=== PATIENT | male | born 1980 | race Two or more races ===

== ENCOUNTER 2017-03-31 19:38 | Emergency (ER) | payer OTHER ==
[2017-03-31 20:30] VITALS: BP 121/79
[2017-03-31] MEDS ORDERED: ACETAMINOPHEN 325 MG TABLET PO ONE (20:32)
[2017-03-31] MEDS ORDERED: ACETAMINOPHEN 325 MG TABLET ONE (20:34)
[2017-03-31] MEDS ORDERED: GUAIFENESIN/D-METHORPHAN (200-20 MG) SYRUP 10 ML PO ONE (21:09)
[2017-03-31] MEDS ORDERED: IBUPROFEN 800 MG TABLET PO ONE (21:09)
[2017-03-31 21:45] LABS: A TYPE INFLUENZA AG NEGATIVE (NEGATIVE); B INFLUENZA AG NEGATIVE (NEGATIVE)
[2017-03-31] MEDS ORDERED: AMOXICILLIN TRIHYDRATE 500 MG CAPSULE PO ONE (21:59)
--- NOTE | 2017-03-31 21:59 | ER Document Report ---
ED Flu Like - General Chief Complaint: Flu Symptoms Stated Complaint: FLU SYMPTOMS Time Seen by Provider: 03/31/17 21:09 Mode of Arrival: Ambulatory Information source: Patient Notes: Patient is a 36-year-old male who presents to the ER today for sore throat that began this morning with body aches, fever as high as 103F at home and some nausea. He also states there is a dry cough but no shortness of breath or difficulty breathing. Patient states that the sore throat is the worst symptom. He denies any vomiting or diarrhea. TRAVEL OUTSIDE OF THE [place] IN LAST 30 DAYS: Yes - Related Data Allergies/Adverse Reactions: No Known Allergies Allergy (Unverified 03/31/17 19:47) Past Medical History - General Information source: Patient - Social History Smoking Status: Never Smoker Chew tobacco use (# tins/day): No Frequency of alcohol use: None Drug Abuse: None Family History: Reviewed & Not Pertinent Patient has suicidal ideation: No Patient has homicidal ideation: No Renal/ Medical History: Denies: Hx Peritoneal Dialysis Review of Systems - Review of Systems Constitutional: See HPI EENT: See HPI Cardiovascular: No symptoms reported Respiratory: See HPI Gastrointestinal: No symptoms reported Genitourinary: No symptoms reported Male Genitourinary: No symptoms reported Musculoskeletal: No symptoms reported Skin: No symptoms reported Hematologic/Lymphatic: No symptoms reported Neurological/Psychological: No symptoms reported Physical Exam - Vital signs Vitals: Temp Pulse Resp BP Pulse Ox 102.6 F H 111 H 20 121/79 100 03/31/17 20:27 03/31/17 20:27 03/31/17 20:27 03/31/17 20:27 03/31/17 20:27 - Notes Notes: PHYSICAL EXAMINATION: GENERAL: Mildly ill-appearing, but in no acute distress. HEAD: Atraumatic, normocephalic. EYES: Pupils equal round and reactive to light, extraocular movements intact, sclera anicteric, conjunctiva are normal. ENT: ear canals without erythema or foreign body, TMs pearly gray with good bony landmarks, nares patent, oropharynx erythematous with enlarged tonsils bilaterally without exudates. Moist mucous membranes. NECK: Normal range of motion, supple with bilateral cervical lymphadenopathy LUNGS: CTAB and equal. No wheezes rales or rhonchi. HEART: Regular rate and rhythm without murmurs ABDOMEN: Soft, no tenderness. No guarding, no rebound BACK: no vertebral tenderness, normal ROM GI/: no CVA tenderness EXTREMITIES: Normal range of motion, no pitting edema. No cyanosis. NEUROLOGICAL: Cranial nerves grossly intact. Normal sensory/motor exams. PSYCH: Normal mood, normal affect. SKIN: Warm, Dry, normal turgor, no rashes or lesions noted Course - Re-evaluation Re-evalutation: 03/31/17 21:57 Influenza negative today. Will cover patient for strep throat. Fever did reduce with Tylenol and Motrin. 03/31/17 21:57 - Vital Signs Vital signs: Temp Pulse Resp BP Pulse Ox 99 F 111 H 20 121/79 100 03/31/17 22:00 03/31/17 20:27 03/31/17 20:27 03/31/17 20:27 03/31/17 20:27 Discharge - Discharge Clinical Impression: Sore throat, Body aches Fever Qualifiers: Fever type: unspecified Qualified Code(s): R50.9 - Fever, unspecified Condition: Stable Disposition: HOME, SELF-CARE Additional Instructions: Return immediately for any new or worsening symptoms. Follow up with primary care provider, call tomorrow to make followup appointment. Prescriptions: Hydrocodone Bit/Homatropine [Hycodan Syrup 5-1.5 mg/5 ml Ud Cup] 5 ml PO Q4HP PRN #120 ml PRN Reason: Amoxicillin 500 mg PO BID #20 capsule Ibuprofen [Motrin 800 mg Tablet] 800 mg PO Q8H PRN #30 tab PRN Reason: Forms: Return to Work
== END 2017-03-31 22:13 | disposition home or self-care (01) ==
LOC: ER 19:38
DX: J02.9 Acute pharyngitis, unspecified (principal); M79.1 Myalgia; R50.9 Fever, unspecified
CPT/HCPCS: 99283; 87804; J3490

== ENCOUNTER 2018-09-16 14:30 | Emergency (ER) | payer OTHER ==
[2018-09-16 14:39] VITALS: BP 146/91
[2018-09-16] MEDS ORDERED: DIPH/PERTUSS(ACELL)/TETANUS VAC/PF 0.5 ML SYR (>=10YO) IM ONE (14:47)
--- NOTE | 2018-09-16 14:48 | ER Document Report ---
ED Medical Screen (RME) - General Chief Complaint: Hand Pain Stated Complaint: HAND INJURY Time Seen by Provider: 09/16/18 14:47 TRAVEL OUTSIDE OF THE [place] IN LAST 30 DAYS: No COUNTRY TRAVELED TO/FROM: [facility] Notes: 09/16/18 14:47 Patient is a 38-year-old male no significant past medical history who presents complaining of injury to his second third and fourth fingers after they were closed in an attic door. Patient states he does have cuts to each finger. Unknown last tetanus. He is still able to move his fingers, but does have decreased flexion ability because of the pain/swelling. Denies drug allergies. Denies JUNIOR, fever, neck pain, URI, CP, SOB, Abd pain, dysuria, back pain, or rash. I have treated and performed a rapid initial assessment of this patient. A comprehensive ED assessment and evaluation of the patient, analysis of test results and completion of medical decision making process will be conducted by additional ED providers. PHYSICAL EXAMINATION: GENERAL: Well-appearing, well-nourished and in no acute distress. A&Ox4. Answers questions appropriately. Left hand: + puncture lacs noted to the 2nd-4th digits posteriorly, superficial. + tenderness to these digits as well. N/V intact distal. LROM to flexion. Strength 5+/5. - Related Data Allergies/Adverse Reactions: No Known Allergies Allergy (Verified 09/16/18 14:39) Past Medical History Renal/ Medical History: Denies: Hx Peritoneal Dialysis Physical Exam - Vital signs Vitals: Temp Pulse Resp BP Pulse Ox 98 F 101 H 18 146/91 H 98 09/16/18 14:37 09/16/18 14:37 09/16/18 14:37 09/16/18 14:37 09/16/18 14:37 Course - Vital Signs Vital signs: Temp Pulse Resp BP Pulse Ox 98 F 101 H 18 146/91 H 98 09/16/18 14:37 09/16/18 14:37 09/16/18 14:37 09/16/18 14:37 09/16/18 14:37
--- NOTE | 2018-09-16 15:04 | RADIOLOGY REPORT (SQ) ---
EXAM DESCRIPTION: HAND LEFT 3 VIEWS COMPLETED DATE/TIME: 09/16/2018 2:54 pm REASON FOR STUDY: left hand pain COMPARISON: None. EXAM PARAMETERS: NUMBER OF VIEWS: Three views. TECHNIQUE: AP, lateral and oblique radiographic images acquired of the left hand. LIMITATIONS: None. FINDINGS: MINERALIZATION: Normal. BONES: No acute fracture or dislocation. No worrisome bone lesions. JOINTS: No effusions. SOFT TISSUES: No soft tissue swelling. No foreign body. OTHER: No other significant finding. IMPRESSION: No fracture or dislocation of the left hand. TECHNICAL DOCUMENTATION: JOB ID: [id number] [employer]- All Rights Reserved Reading location - IP/workstation name: [email or web address]
--- NOTE | 2018-09-16 15:37 | ER Document Report ---
HPI - HPI Time Seen by Provider: 09/16/18 14:47 Pain Level: 4 Context: Patient is a 38-year-old male who presents to the emergency department with a chief complaint of left hand injury. Patient states that about 1 hour prior to arrival he was helping a friend install an attic door when his left hand was closed in between the edges of the 2 pieces of wood. Patient states he does have 2 small lacerations to the posterior aspect of the second and fourth finger. Patient states initially he was unable to bend the second third and fourth finger due to swelling and pain. Patient states that since arriving to the emergency department the swelling has reduced and he has been able to appropriately flex and extend his fingers. Patient states he does feel much better. Patient is unsure if his tetanus shot is up-to-date. Patient denies any other injury. - DERM Skin Color: Normal, [place] Past Medical History - General Information source: Patient - Social History Smoking Status: Never Smoker Frequency of alcohol use: None Drug Abuse: None Lives with: Alone Family History: Reviewed & Not Pertinent Patient has suicidal ideation: No Patient has homicidal ideation: No - Past Medical History Cardiac Medical History: Reports: None Pulmonary Medical History: Reports: None EENT Medical History: Reports: None Neurological Medical History: Reports: None Endocrine Medical History: Reports: None Renal/ Medical History: Reports: None. Denies: Hx Peritoneal Dialysis Malignancy Medical History: Reports None GI Medical History: Reports: None Musculoskeletal Medical History: Reports None Skin Medical History: Reports None Psychiatric Medical History: Reports: None Traumatic Medical History: Reports: None Infectious Medical History: Reports: None Past Surgical History: Reports: Hx Oral Surgery, Hx Orthopedic Surgery - right hand, Hx Testicular Surgery - vasectomy Vertical Provider Document - CONSTITUTIONAL Agree With Documented VS: Yes Exam Limitations: No Limitations General Appearance: No Apparent Distress - INFECTION CONTROL TRAVEL OUTSIDE OF THE [place] IN LAST 30 DAYS: No COUNTRY TRAVELED TO/FROM: [place] - HEENT HEENT: Atraumatic, Normocephalic - NECK Neck: Normal Inspection - RESPIRATORY Respiratory: Breath Sounds Normal, No Respiratory Distress - CARDIOVASCULAR Cardiovascular: Regular Rate, Regular Rhythm - GI/ABDOMEN Gastrointestinal: Abdomen Soft, Abdomen Non-Tender - BACK Back: Normal Inspection - MUSCULOSKELETAL/EXTREMETIES Notes: Patient has 2 small very superficial lacerations to the posterior aspect of the second and fourth digits. Patient does have strong flexion and extension of all fingers. Patient has < 2 sec second cap refill on all 5 fingers. Patient is able to make an okay sign, has strong room service waiter, and make a fist and a strong left radial pulse. There is no ecchymosis, edema, or erythema. - NEURO Level of Consciousness: Awake, Alert, Appropriate - DERM Integumentary: Warm, Dry Course - Re-evaluation Re-evalutation: 09/16/18 15:36 Patient's x-ray shows no acute fracture dislocation. Patient's tetanus was updated while in the emergency department ordered in triage. Patient is neurovascularly intact and has a full flexion and extension. Patient states that since being in the emergency department the swelling and pain has decreased. Will clean and bandage the superficial lacerations here in the emergency department. The lacerations do not require sutures or Steri-Strips. There is no active bleeding of the lacerations. I did inform the patient to keep this area clean and dry. He may use a bacitracin as needed. Ice elevate and use ibuprofen or Tylenol as needed at home. - Vital Signs Vital signs: Temp Pulse Resp BP Pulse Ox 98 F 101 H 18 146/91 H 98 09/16/18 14:37 09/16/18 14:37 09/16/18 14:37 09/16/18 14:37 09/16/18 14:37 - Diagnostic Test Radiology reviewed: Image reviewed, Reports reviewed Discharge - Discharge Clinical Impression: Injury of left hand Qualifiers: Encounter type: initial encounter Qualified Code(s): S69.92XA - Unspecified injury of left wrist, hand and finger(s), initial encounter Condition: Stable Disposition: HOME, SELF-CARE Additional Instructions: Today you were seen in the emergency department for left hand injury. Your x- ray was negative for any acute fracture or dislocation. You do have 2 small superficial lacerations to the posterior aspect of the second and fourth digits on the left hand. Please keep these clean and dry. You may use an [id number] antibiotic ointment. Please seek medical attention if you are unable to bend your fingers at the joint, develop any new numbness or tingling, signs and symptoms of infection to include significant swelling, redness or any other concerning signs or symptoms. Ice and elevate the left hand to help with swelling and take Tylenol or ibuprofen as needed. Hand Laceration A laceration on the hand can present special problems. It may be difficult to keep the wound dry. Motion of the fingers can disturb the healing edges. Your work may involve exposure to damaging chemicals or water. Keep the wound clean and dry. If you can't keep the cut dry, undisturbed, and free of chemical exposure, please discuss this with the doctor. If any water or chemical gets onto the dressing, remove it, blot the wound dry, then apply a fresh bandage. Dressings should be changed every day. If you feel the stitches pulling as you move the hand, a splint or other form of protection is needed. If any signs of infection occur (swelling, redness, increasing tenderness, red streaks, tender lumps in the armpit, or fever), see the doctor immediately.
[2018-09-16] MEDS ORDERED: IBUPROFEN 600 MG TABLET PO ONE (15:40)
== END 2018-09-16 15:48 | disposition home or self-care (01) ==
LOC: ER 14:30
DX: S69.92XA Unspecified injury of left wrist, hand and finger(s), initial encounter (principal); W23.1XXA Caught, crushed, jammed, or pinched between stationary objects, initial encounter; Y93.H3 Activity, building and construction; Y92.009 Unspecified place in unspecified non-institutional (private) residence as the place of occurrence of the external cause; Z23 Encounter for immunization
CPT/HCPCS: 90471; 90715; 99283